=== PATIENT | female | born 2000 | race Caucasian/White ===

== ENCOUNTER 2025-08-30 10:24 | Emergency (ER) | payer OTHER, SELFPAY ==
[2025-08-30 10:36] VITALS: BP 136/91; PULSE 69; RESP 16; TEMP 36.7; O2SAT 97; BMI 23.3
--- NOTE | 2025-08-30 10:38 | XR_ITS ---
EXAMINATION: Ankle, right 3 views. Technique: Ankle AP, oblique, lateral 3 views Date and time of exam: August 30, 2025, 10:48 a.m. INDICATIONS: Patient fell today with injury of the ankle, ankle pain. FINDINGS: No ankle fracture or dislocation No foreign body IMPRESSION: No ankle fracture or dislocation
--- NOTE | 2025-08-30 12:03 | EDNOTE_ITS ---
<Statement entered by Debbie Whittaker MD - 08/30/25 17:58> As co-signing physician, I was present and available for consult prn. I concur with the plan and care as documented by the midlevel provider. Lower Extremity Injury RME/HPI General Chief Complaint: Ankle/Foot Injury Stated Complaint: RIGHT ANKLE INJURY Time Seen by Provider: 08/30/25 10:34 Arrival date/time: 08/30/25 10:24 24-year-old female presents to the emergency department today stating that she jumped off of a haystack approximately 4 feet high reports twisting her right ankle. Limitations: no limitations Related Data Previous Rx's ?Medication ?Instructions ?Recorded ibuprofen 600 mg tablet 1 tab PO Q8HR PRN pain #30 t abs 10/28/15 hydrocodone 5 mg-acetaminophen 325 1 tab PO BID PRN pa in #10 tabs 01/16/23 mg tablet ibuprofen 600 mg tablet 600 mg PO Q6H #30 tabs 01/16 ibuprofen 600 mg tablet 600 mg PO Q6H #30 tabs 08/30 Allergies Allergy/AdvReac Type Severity Reaction Status Date / Time Bee Stings Allergy Intermediate Uncoded 10/28/15 14:19 Review of Systems Review of Systems Systems Reviewed: All systems reviewed, normal except as documented Constitutional Constitutional: Reports system reviewed and no additional complaints, except as documented, Denies fever(s) and Denies headache(s) Eyes Eyes: Reports system reviewed and no additional complaints, except as documented and Denies blurry vision ENT Ears, Nose, Mouth, and Throat: Reports system reviewed and no additional complaints, except as documented, Denies headache(s), Denies nasal congestion and Denies nasal discharge Cardiovascular Cardiovascular: Reports system reviewed and no additional complaints, except as documented, Denies chest pain and Denies dyspnea Respiratory Respiratory: Reports system reviewed and no additional complaints, except as documented, Denies chest congestion, Denies cough and Denies dyspnea Gastrointestinal Gastrointestinal: Reports system reviewed and no additional complaints, except as documented and Denies abdominal pain Musculoskeletal Musculoskeletal: Reports system reviewed and no additional complaints, except as documented, Reports arthralgias, Denies deformity, Denies numbness, Reports stiffness and Denies tingling Integumentary/Breasts Skin/Breast: Reports system reviewed and no additional complaints, except as documented and Denies rash Neurologic Neurologic: Reports system reviewed and no additional complaints, except as documented, Reports as per HPI, Denies headache(s), Denies numbness and Denies tingling Past Medical History Social History SMOKING STATUS: Never smoker ED Exam General Limitations: Present no limitations General appearance: Present alert and in no apparent distress Head Head exam: Present atraumatic, normocephalic and normal inspection Eye Eye exam: Present normal appearance, PERRL and EOMI ENT ENT exam: Present normal exam, normal oropharynx and mucous membranes moist Neck Neck exam: Present normal inspection, full ROM and trachea midline Chest Chest inspection: Present normal inspection and symmetric chest wall rise Respiratory Respiratory exam: Present normal lung sounds bilaterally Cardiovascular Cardiovascular exam: Present regular rate, normal rhythm and normal heart sounds Abdominal Exam Abdominal exam: Present soft and normal bowel sounds Extremities Exam Extremities exam: Present full ROM, tenderness, normal capillary refill and joint swelling (Right ankle pain) Back Exam Back exam: Present normal inspection and full ROM Neurological Exam Neurological exam: Present alert, oriented X3 and CN II-XII intact Psychiatric Psychiatric exam: Present normal affect and normal mood Skin Skin exam: Present warm, dry, intact and normal color Course Quality Measures none Orders Category Date Time Status Crutches .NOW Care 08/30/25 12:03 Completed XR ankle comp RT min 3V Stat Exams 08/30/25 10:38 Completed Ibuprofen Tab [Motrin Tab] Med 08/30/25 12:03 Discontinued 600 mg PO X1 ONE Vital Signs Vital signs: Vital Signs Temperature 98.1 F 08/30/25 10:36 Pulse Rate 69 08/30/25 10:36 Respiratory Rate 16 08/30/25 10:36 Blood Pressure 136/91 H 08/30/25 10:36 Pulse Oximetry (%) 97 08/30/25 10:36 Oxygen Delivery Method Room Air 08/30/25 10:36 O2 saturation 97% on room air within normal limits Extremity Injury, Lower MDM Narrative MDM Narrative:: 24-year-old female presents to the emergency department today stating that she jumped off of a haystack approximately 4 feet high reports twisting her right ankle. On exam patient well-appearing patient is not appear toxic distress On exam patient is tenderness and swelling of the right ankle patient has no fracture on x-ray Patient given crutches and Nhan wrap Patient discharged home in no distress to follow-up with primary care doctor in the next 24 to 48 hours and for any worsening symptoms to return to the ER immediately Patient data External records reviewed:: [facility] previous records Clinical information provided by:: patient Social determinants that could affect healthcare access:: none Patient has the following chronic illnesses:: None How is presenting disease/condition affected by chronic disease/condition?: no chronic disease Evaluation data The following diagnostics were reviewed and interpreted by me:: radiology exam(s) Lab and/or radiology exams considered but not ordered:: Radiology obtain Interpretation Summary: Reviewed by me Medications / Prescriptions Medications or Prescriptions considered but not ordered:: Given Medication administrations:: Medication Administration History Discontinued Medications Ibuprofen (Ibuprofen Tab 600 Mg Tablet) 600 mg PO X1 ONE Stop: 08/30/25 12:04 Last Admin: 08/30/25 12:24 Dose: Not Given Documented By: JANIA Non-Admin Reason: Patient Refused Given Consultations Consultation(s) initiated? (list below): No Diagnosis Extremity Injury, Lower Differential Diagnosis: ankle sprain and strain and ankle fracture Most likely diagnosis given after review of the tests above:: Ankle sprain Admission Indicated Admission indicated?: not indicated Admission Request Was there a request for admission?: No Disposition Plan Disposition Plan: Discharge Discharge Attestation Discharge Attestation: The patient and all family members were given an opportunity to ask questions and understood the discharge instructions. Discharge instructions specifically effects, indications for sooner follow up or return to the emergency department, and the expected course of current diagnosis. Patient condition: Stable Discharge Plan Plan Patient Disposition: HOME (Self Care) Discharge Disposition comment: Stable Prescriptions/Referrals Prescriptions/Med Rec: New ibuprofen 600 mg tablet 600 mg PO Q6H Qty: 30 0RF No Action ibuprofen 600 MG tablet 1 tab PO Q8HR PRN (Reason: pain) Qty: 30 0RF hydrocodone-acetaminophen 5-325 mg tablet 1 tab PO BID MDD 10 PRN (Reason: pain) Qty: 10 0RF ibuprofen 600 mg tablet 600 mg PO Q6H Qty: 30 0RF Referrals: Norberto Ford MD [Primary Care Provider, Family Practice] - 09/01/25 Problem List Clinical Impression: Right ankle sprain Patient/Caregiver Discharge Instructions Education Materials: ED NHAN Wrap Additional Instructions: Please follow up with your primary care doctor in the next 24-48hrs for any worsening symptoms return here immediately Print Language: Albanian Stand Alone Forms: Seamless Receipts Info., Patient Portal Info Letter PA/MATERNAL CHILD NURSE Supervising Physician PA/MATERNAL CHILD NURSE Supervising Physician: dr whittaker
== END 2025-08-30 12:41 | disposition home or self-care (01) ==
PROVIDERS: Emergency Provider Emergency Medicine; PCP Family Medicine
DX: S93.401A Sprain of unspecified ligament of right ankle, initial encounter (principal); X50.1XXA Overexertion from prolonged static or awkward postures, initial encounter
CPT/HCPCS: 73610; 99281

== ENCOUNTER → 2025-09-18 | Outpatient (CLI) | payer OTHER, SELFPAY ==
--- NOTE | 2025-09-18 07:00 | XR_ITS ---
Examination: MRI right ankle without contrast Date and time of exam: September 18, 2025, 0659 hours INDICATIONS: Injury to the ankle 2 weeks ago with lateral ankle swelling and pain Technique: Multiple MRI axial and sagittal sections right ankle. Sagittal T2-weighted images, TR 3500, TE 118 T1 weighted transverse sections, TR 688 T8.5, T2-weighted sagittal sections T1 weighted sagittal sections TR 621, TE 30 T2 axial sections, TR 4, 190, TE 84. Findings: Significant ankle effusion Intact Achilles tendon Minimal plantar fasciitis Marked marrow edema involving the talus especially medially Marrow edema medial malleolus No osteochondral fracture of the talus Anterior posterior inferior tibiofibular ligaments intact Partial tear posterior talofibular ligament Diffuse flexor tendinitis, severe involving the flexor hallucis longus Extensor tendons intact IMPRESSION: Marked marrow edema involving the talus, suggest CT repeat ankle follow-up to exclude microtrabecular fracture lines involving the talus Bone contusion medial malleolus Partial tear posterior talofibular ligament Diffuse flexor tendinitis, severe involving the flexor hallucis longus
== END | disposition home or self-care (01) ==
PROVIDERS: PCP Nurse Practitioner; Referring Provider Nurse Practitioner; Visit Provider Nurse Practitioner
DX: T14.8XXD Other injury of unspecified body region, subsequent encounter (principal); X58.XXXD Exposure to other specified factors, subsequent encounter; S93.491D Sprain of other ligament of right ankle, subsequent encounter; R60.9 Edema, unspecified; M67.873 Other specified disorders of tendon, right ankle and foot
CPT/HCPCS: 73721